=== PATIENT | male | born 1960 | race Caucasian/White ===

== ENCOUNTER 2018-11-18 13:35 | Emergency (ER) | payer OTHER ==
[~2018-11-18] VITALS: Ht 177.8 cm; Wt 80.7 kg
[2018-11-18 14:15] LABS: Basophils # (auto) 0 uL; Basophils % (auto) 0.3 % (0.0-2.0); Eosinophils # (auto) 0.1 uL; Eosinophils % (auto) 1.2 % (0.0-7.0); Hematocrit 35.3 % (41.0-53.0); Hemoglobin 11.9 g/dL (13.5-17.5); Lymphocytes % (auto) 30.7 % (10.0-50.0); Mean Corpuscular Hemoglobin 33.1 pg (28.0-32.0); Mean Corpuscular Hgb Conc. 33.7 g/dL (32.0-36.0); Mean Corpuscular Volume 98.2 fL (80.0-100.0); Monocytes # (auto) 1.1 uL; Monocytes % (auto) 10.9 % (0.0-12.0); Neutrophils # (auto) 5.5 uL; Neutrophils % (auto) 56.9 % (37.0-80.0); Nucleated Red Blood Cells % 0.2 %; Platelet Count (auto) 164 10^3/uL (140-450); Red Cell Distribution Width 17.1 % (11.8-14.3); White Blood Cell 9.8 10^3/uL (4.4-10.8)
[2018-11-18 14:35] LABS: Albumin 2.5 g/dL (3.4-5.0); Calcium 7.9 mg/dL (8.5-10.1)
[2018-11-18 14:38] LABS: BUN/Creatinine Ratio 3.2; Bilirubin, Total 2.2 mg/dL (0.2-1.0); Total Protein 6.9 g/dL (6.4-8.2)
[2018-11-18 14:54] LABS: INR 1.04 (0.9-1.15); Partial Thromboplastin Time 25.7 sec (23.64-32.05)
[2018-11-18 16:23] VITALS: BP 109/68
[2018-11-18 17:44] LABS: Urine Bacteria NONE SEEN /hpf (None Seen); Urine Blood Negative /uL (Negative); Urine Specific Gravity 1.001 (1.001-1.035); Urine WBC 12 /hpf (0 - 3)
== END 2018-11-18 19:02 | disposition home or self-care (01) ==
LOC: ER 13:35
DX: R60.0 Localized edema (principal); K76.9 Liver disease, unspecified; N39.0 Urinary tract infection, site not specified; F17.200 Nicotine dependence, unspecified, uncomplicated; Z59.0 Homelessness
CPT/HCPCS: 36415; 71046; 74176; 80053; 81001; 83880; 84484; 85025; 85610; 85730

== ENCOUNTER 2024-09-24 08:56 | Outpatient (CLI) | payer OTHER ==
[2024-09-24 09:33] LABS: Hematocrit 43.4 % (41.0-53.0); Hemoglobin 15.0 g/dL (13.5-17.5); Mean Corpuscular Hemoglobin 31.0 pg (28.0-32.0); Mean Corpuscular Volume 89.6 fL (80.0-100.0); Nucleated Red Blood Cells % 0.2 %
[2024-09-24 09:39] LABS: INR 1.09 (0.9-1.15); Prothrombin Time 11.5 sec (9.3-11.8)
[2024-09-24 10:22] LABS: Alanine Aminotransferase 22 U/L (7-40); Alkaline Phosphatase 61 U/L (46-116); Anion Gap 6 (5-15); BUN/Creatinine Ratio 16.2 (10.0-20.0); Blood Urea Nitrogen 12 mg/dL (9-23); Calcium 9.6 mg/dL (8.7-10.4); Carbon Dioxide 26 mmol/L (20-31); Chloride 107 mmol/L (98-107); Glucose 100 mg/dL (74-106); Potassium 4.4 mmol/L (3.5-5.1); Sodium 139 mmol/L (136-145); Total Protein 7.2 g/dL (5.7-8.2); Triglycerides 68 mg/dL (< 150)
[2024-09-24 10:23] LABS: Albumin 4.2 g/dL (3.2-4.8); Bilirubin, Direct 0.2 mg/dL (<0.3); Bilirubin, Total 0.5 mg/dL (0.2-1.0); Cholesterol 123 mg/dL (< 200)
[2024-09-24 10:26] LABS: HDL Cholesterol 36 mg/dL (40-59)
[2024-09-24 10:39] LABS: Hepatitis B Surface Antigen Negative (Negative)
[2024-09-24 11:05] LABS: Hepatitis C Antibody Negative (Negative)
== END 2024-09-24 17:00 | disposition home or self-care (01) ==
LOC: LAB 08:56
PROVIDERS: ATTEND Family Medicine
DX: K74.60 Unspecified cirrhosis of liver (principal); R94.5 Abnormal results of liver function studies; R53.1 Weakness; F41.9 Anxiety disorder, unspecified; Z68.29 Body mass index [BMI] 29.0-29.9, adult; J30.2 Other seasonal allergic rhinitis
CPT/HCPCS: 36415; 80053; 80061; 80069; 80076; 82105; 82140; 82728; 83036; 84443; 85025; 85610; 86803; 87340

== ENCOUNTER 2024-11-26 08:15 | Outpatient (CLI) | payer OTHER | END 2024-11-26 17:00 | disposition home or self-care (01) | LOC: LAB 08:15 | PROVIDERS: ATTEND Internal Medicine | DX: E72.29 Other disorders of urea cycle metabolism (principal) | CPT/HCPCS: 82140 ==